=== PATIENT | female | born 1980 | race Caucasian/White ===

== ENCOUNTER 2016-03-10 06:12 | Emergency (ER) ==
[2016-03-10] MEDS ORDERED: SOLU-MEDROL IM ONE (06:29)
[2016-03-10] MEDS ORDERED: ROCEPHIN IM ONE (06:29)
[2016-03-10] MEDS ORDERED: DUONEB (A & A) INH ONE (06:29)
[2016-03-10] MEDS ORDERED: XYLOCAINE-MPF 1% INJ ONE (06:29)
--- NOTE | 2016-03-10 06:45 | PROVIDER DOCUMENTATION ---
HPI-General Adult - General Chief Complaint: Shortness of Breath Stated Complaint: ASTHMA SX Time Seen by Provider: 03/10/16 06:17 Source: patient, family Allergies/Adverse Reactions: Patient Allergies Allergy/AdvReac Type Severity Reaction Status Date / Time amoxicillin [Amoxicillin] Allergy Severe SWELLING, Verified 03/10/16 06:23 RASH; THROAT TIGHTNESS;HIVES Home Medications: Albuterol Sulfate [Proair Hfa] 8.5 gm IH DIRECTED 03/10/16 Loratadine [Claritin] 10 mg PO DAILY 03/10/16 - History of Present Illness -Gen Adult Nature of Presenting Problems: Reports woke up due to sudden onset SOB/throat choking feeling. Reports she has h/o similar attacks in the past and it was bronchitis on top of her asthma. Usually Steroids and breathing tx etc can cure it. Denies CP and no concerns for her heart. Pt's RI4=100% on RA and her voice slightly hoarse. In no distress. Location of Pain/Injury: reports: none Pain Radiation: reports: no radiation Quality of Pain: reports: none Onset/Duration: reports: gradual, just prior to arrival Timing: reports: still present, improving Context/Activities at Onset: reports: none Modifying Factors: improves with: nothing Associated Symptoms: reports: cough, shortness of breath Similar Symptoms Previously?: Yes Recently seen or treated by another doctor?: Yes Review of Systems - Adult - REVIEW OF SYSTEMS - ADULT Constitutional: reports: no symptoms reported. denies: fever, fatique Eyes: reports: no symptoms reported Ears, Nose, Mouth & Throat: reports: see HPI, hoarseness. denies: throat pain, throat swelling Cardiovascular: reports: no symptoms reported Respiratory: reports: see HPI, shortness of breath. denies: wheezing Gastrointestinal: reports: no symptoms reported Genitourinary: reports: no symptoms reported Musculoskeletal: reports: no symptoms reported Integumentary: reports: no symptoms reported Neurological: reports: no symptoms reported Psychiatric: reports: no symptoms reported Endocrine: reports: no symptoms reported Hematologic/Lymphatic: reports: no symptoms reported Allergic/Immunologic: reports: no symptoms reported All Other Systems: Reviewed and Negative Past History - Adult - PAST MEDICAL HISTORY-ADULT Major Childhood Illnesses: reports: denies history Cardiovascular: reports: A-Fib Respiratory: reports: denies history Gastrointestinal: reports: denies history Obstetrical/Gynecological: reports: denies history Genitourinary: reports: denies history Musculoskeletal: reports: denies history Neurological: reports: denies history Endocrine/Immune: reports: denies history Other Conditions: reports: denies history - PRIOR SURGERIES/PROCEDURES Surgical/Procedure History: reports: none - PRIOR HOSPITALIZATIONS Prior Hospitalizations: reports: none - IMMUNIZATION STATUS Childhood Immunizations: UTD Flu Vaccine: See Nurse Assessment - FAMILY HISTORY Family History: reviewed, not pertinent Physical Exam-General - PHYSICAL EXAM-ADULT Initial Vital Signs Reviewed: Yes - CONSTITUTIONAL General Appearance: appears well, alert, no apparent distress - EYES Eyes: PERRL/EOMI, pink conjunctivae - HEAD, EARS, NOSE, MOUTH & THROAT HENMT: normocephalic/atraumatic, moist mucous membranes, pharyngeal erythema ( Mild b/l tonsil enlargement). negative: tonsillar exudate - NECK Neck: non-tender, full range of motion, normal inspection - RESPIRATORY Respiratory: chest non-tender, lungs clear, normal breath sounds. negative: crackles, rales, rhonchi, wheezing, dull on percussion, retractions - CARDIOVASCULAR Cardiovascular: normal peripheral pulses, regular rate, rhythm, no edema - GASTROINTESTINAL (ABDOMEN) Abdominal Exam: normal bowel sounds, non tender, soft - LYMPHATIC Lymphatic: no adenopathy - MUSCULOSKELETAL Back Exam: normal inspection, no CVA tenderness, no vertebral tenderness Extremity: normal range of motion, non-tender, normal gait - SKIN Integumentary: normal color, normal turgor, warm/dry - NEUROLOGIC Neurologic: grossly normal, no motor/sensory deficits - PSYCHIATRIC Psych/Mental Status: normal mood/affect, normal thought content, normal thought process, oriented x 3 Progress - PLAN OF CARE/RESULTS Progress/Plan/Lab Results: Orders Category Date Time Status Albuterol 2.5MG/Ipratrop 0.5MG [Duoneb (A & A)] Med 03/10/16 06:29 Discontinued 3 ml INH NOW ONE CefTRIAXONE [Rocephin] Med 03/10/16 06:29 Discontinued 1 gm IM NOW ONE Lidocaine 1% Pf [Xylocaine-Mpf 1%] Med 03/10/16 06:29 Discontinued 5 ml INJ NOW ONE Methylprednisolone Sod Succ [Solu-Medrol] Med 03/10/16 06:29 Discontinued 125 mg IM NOW ONE Aerosol Treatments Routine Oth 03/10/16 06:29 Completed Aerosol Treatments Stat Oth 03/10/16 06:29 Completed Vital Signs Temp Pulse Resp BP Pulse Ox 03/10/16 06:28 73 23 100 03/10/16 06:25 61 18 03/10/16 06:21 98.2 F 74 22 133/70 100 amoxicillin [Amoxicillin] Allergy (Severe, Verified 03/10/16 06:23) SWELLING, RASH; THROAT TIGHTNESS;HIVES Albuterol Sulfate [Proair Hfa] 8.5 gm IH DIRECTED 03/10/16 Loratadine [Claritin] 10 mg PO DAILY 03/10/16 - REASSESSMENT Reassessment #1 Time Reassessed: 07:29 Status: improving (Reports her symptoms improved significantly and ready to go home.) Departure - Departure Time of Disposition Order: 07:29 DIAGNOSIS: Bronchitis, Asthma attack Disposition: HOME 01 Certified Medical Emergency: Emergent Condition: Stable Additional Instructions: Return to ER immediately if your symptoms worsen, Follow up with regular MD in 1-2 days. Use your home inhaler as needed. Prescriptions: Methylprednisolone [Medrol Dosepak] 4 mg PO DIRECTED #1 package Azithromycin [Zithromax Z-Lewis] 250 mg PO DIRECTED #1 pkg
[2016-03-10 08:03] VITALS: BP 134/70
== END 2016-03-10 08:03 | disposition home or self-care (01) ==
LOC: P.ED 06:12
DX: J40 Bronchitis, not specified as acute or chronic (principal); J45.909 Unspecified asthma, uncomplicated; R06.02 Shortness of breath; R49.0 Dysphonia; R05 Cough; J35.1 Hypertrophy of tonsils
CPT/HCPCS: 94640; 96372; J0696; J2930